=== PATIENT | female | born 1960 | race Caucasian/White ===

== ENCOUNTER 2016-11-11 05:16 | Inpatient (IN) ==
[2016-11-04 11:19] LABS: HEMATOCRIT 44.1 % (37.0-47.0); HEMOGLOBIN 14.2 g/dL (12.0-16.0); MCH 29.7 PG (27-31); MCHC 32.2 g/dL (33-37); MCV 92.3 FL (81-99); RBC 4.78 XMIL (4.2-5.4)
[2016-11-04 11:58] LABS: AGAP 13; BUN 12 mg/dL (8-22); CALCIUM 9.4 mg/dL (8.8-10.2); CHLORIDE 102 mmol/L (98-107); COSMO 282; POTASSIUM 4.2 mmol/L (3.5-5.1); SODIUM 141 mmol/L (136-145); TCO2 26 mmol/L (25-35)
--- NOTE | 2016-11-04 12:14 | EKG Report ---
Test Performed on : 11/04/2016 10:41:40 AM Test Reason : PAT Blood Pressure : / mmHG Vent. Rate : 069 BPM Atrial Rate : 069 BPM P-R Int : 150 ms QRS Dur : 074 ms QT Int : 376 ms P-R-T Axes : 043 007 009 degrees QTc Int : 402 ms Normal sinus rhythm. Normal ECG No previous ECGs available Confirmed by Carlos Eduardo Garcia MD ([id number]) on 11/06/2016 5:31:30 PM
[2016-11-11] MEDS ORDERED: LR 1,000 ML ONE ×3 (05:32→16:37)
[2016-11-11] MEDS ORDERED: KEFZOL 1 GM/D5W 1 GM/50 ML IVPB ONE (05:32)
[2016-11-11] MEDS ORDERED: MARCAINE 0.25% PF/EPI 1:200,000 ONE (06:29)
[2016-11-11] MEDS ORDERED: VERSED ONE ×2 (06:38→06:46)
[2016-11-11] MEDS ORDERED: SODIUM CHLORIDE 0.9% 10 ML ONE (08:43)
[2016-11-11] MEDS ORDERED: MARCAINE 0.25% PF ONE (08:43)
[2016-11-11] MEDS ORDERED: EXPAREL 1.3% ONE ×2 (08:44→08:45)
[2016-11-11 08:55] LABS: URINE MICRO REVIEW NEEDED? NO; URINE SOURCE CATH
[2016-11-11 09:00] LABS: BILIRUBIN URINE NEGATIVE (NEGATIVE); BLOOD URINE NEGATIVE (NEGATIVE); COLOR YELLOW; GLUCOSE URINE NEGATIVE (NEGATIVE); LEUKOCYTES URINE NEGATIVE (NEGATIVE); NITRITE URINE NEGATIVE (NEGATIVE); PROTEIN URINE NEGATIVE (NEGATIVE); SP GRAVITY URINE 1.017; TURBIDITY URINE CLEAR (CLEAR); UR EPITHELIAL CELLS <10 /HPF (<10); URINE BACTERIA NEGATIVE /HPF; URINE RBC <10 /HPF (<10); URINE WBC <10 /HPF (<10); UROBILINOGEN URINE NORMAL (NORMAL)
[2016-11-11] MEDS ORDERED: NS 1,000 ML ONE (10:50)
[2016-11-11] MEDS: DILAUDID ONE ×6 (11:00→12:04)
--- NOTE | 2016-11-11 11:37 | Diag Imaging Result Document ---
PROCEDURE NAME: CHEST-PORTABLE - 11/11/2016 AP PORTABLE CHEST, 11/11/2016 AT 1058 HOURS: FINDINGS: There are 2 chest tubes in the left hemithorax. There is atelectasis in the right upper lobe just above the minor fissure. There are no previous radiographs. IMPRESSION: Recent left thoracotomy with 2 chest tubes. Atelectasis right upper lobe.
--- NOTE | 2016-11-11 12:23 | OPERATIVE NOTE ---
PROCEDURE DATE: 11/11/2016 PROCEDURE: Diagnostic left thoracoscopy; left thoracotomy with left upper lobectomy. SURGEON: Villa Juarez MD UTILITY PORTER: Kayode Knight MD, who assisted in exposure, dissection, and thoracotomy closure. PREOPERATIVE DIAGNOSIS: Left upper lobe mass. POSTOPERATIVE DIAGNOSIS: Nei-pitpz-[id number] malignancy. DESCRIPTION OF PROCEDURE: Satisfactory general endotracheal anesthesia was achieved, the patient was placed in the decubitus position with the left side up. The left posterior lateral chest was prepped and draped in a sterile fashion. We marked the skin below the tip of the scapula. We anesthetized the skin in 3 different places and incised the skin, and carried our incision into the pleural space. The left bronchial tube was clamped allowing the left lung to collapse. We introduced 3 Thoracoport's. As the lung collapsed, we were able to visualize the left upper lobe. We visualized the major fissure. We visualized the superior dorsal segment of the left lower lobe. We palpated the left upper lobe using the pusher and the grasper, could not locate the mass for certain, so we aborted further attempts at removing the mass thoracoscopically. We then removed our Thoracoport's and then incised the skin in the area marked making a posterior lateral thoracotomy, carried our incision through the subcutaneous fat through the latissimus muscle, the serratus anterior muscle. We identified the 5th intercostal space and entered the chest through the 5th intercostal space. We stayed above the sixth rib to try to stay away from the neurovascular bundle under the 5th rib. We then took the neurovascular bundle away from the inferior aspect of the 5th rib so that we would not crush it when placing our rib correctional officer sergeant. Upon placing the rib correctional officer sergeant we could palpate the mass that was in the superior portion of the left upper lobe. We were able to separate the major fissure enough to allow the stapling device that is a GARRET-80 green cartridge to staple across the superior aspect of the left upper lobe thereby removing the mass and it was sent for frozen section. We then proceeded to dissect out our vessels to the left upper lobe. We identified the 2 branches off the pulmonary artery coming to the left upper lobe, there was a node in the AP window that was somewhat calcified. We left it with our specimen. We identified the recurrent nerve and left it alone. We also incised the pleura anterior and posterior and exposed the superior pulmonary vein. We dissected around it and isolated it. We then went to the fissure and incised the pleura there, exposing the artery as it came through the major fissure. There was a node in the anterior hilum that we removed. There was a note from the posterior hilum that we removed and there was a note from the major fissure that we removed. All these were sent for permanent section. 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 We then went back to the branches off the left pulmonary artery main trunk. We doubly ligated them proximally x2, and singly ligated them distally x1, and divided that. Those were the apical and posterior segmental arteries. We then identified the anterior pulmonary vein and ligated it distally and then used the TA-30 vascular staple to staple it proximally and divided the anterior pulmonary vein. We completed the major fissure on the superior portion using the GARRET-80 green cartridge. This then allowed us to visualize the lingular vessels, which we doubly ligated proximally x2 and distally x1, and divided that. This completed our arterial dissection. We completed the fissure inferiorly using again a GARRET-80 green. This then left us with the bronchus. We were able to get a TA-30 degrees green with 4.8 john, we clamped that bronchus and inflated the lower lobe easily. After completing that, we then stapled off the bronchus and divided it there by handing off the left upper lobe. We tested the bronchus under water up to 40 atmospheres and it was air tight. We then used some ProGEL on the staple lines of the major fissure to help completely stop the air leak. We then obtained two 32 chest tube, placed 1 anteriorly, 1 more posteriorly cutting an extra hole in the posterior tube to help decompress and empty the inferior pleural space. We used Exparel 20 mL diluted to 40 mL with plain Marcaine, used it along the fifth and sixth intercostal of the 5th and 6 ribs and neurovascular bundle and then also into the subcutaneous tissue below the skin. We drilled 3 holes in the 5th rib and the 6th rib and passed a #2 Polysorb stitch through these holes, reapproximated the ribs with a rib reapproximated and then secured the chest with these 3 Polysorb stitches. We closed the serratus anterior with a 1 Polysorb. We closed the latissimus with 1 Polysorb. We closed the rhomboids with 1 Polysorb. We closed the subcutaneous tissue with 0 Polysorb and the skin was closed with john, 0 silks were used to secure the chest tube at the skin level and they were attached to the Pleur-evac. Sterile dressing was applied. She tolerated it well, was sent to the recovery room in satisfactory condition. cc: MD Castillo Lockett MD Nixon Gillespie, MD
[2016-11-11] MEDS ORDERED: ZOFRAN IV PRN (12:46)
[2016-11-11] MEDS ORDERED: FENTANYL ONE (13:28)
[2016-11-11] MEDS ORDERED: DIPRIVAN 1% ONE (13:28)
[2016-11-11] MEDS ORDERED: PNEUMOVAX 23 IM ONE (13:30)
[2016-11-11] MEDS: OFIRMEV 1000 MG/ISOTONIC SOLN 1,000 MG/100 ML BOTTLE IV SCH ×2 (13:30→20:25)
[2016-11-11] MEDS: DUONEB (A & A) INH SCH ×3 (15:00→23:25)
[2016-11-11] MEDS: KEFZOL 1 GM/D5W 1 GM/50 ML IVPB IV SCH ×2 (15:11→22:38)
[2016-11-11] MEDS: DILAUDID IV PRN ×4 (16:08→22:38)
[2016-11-11] MEDS ORDERED: ZOFRAN ONE (16:37)
[2016-11-11] MEDS ORDERED: ZEMURON ONE (16:37)
[2016-11-11] MEDS ORDERED: ROBINUL ONE (16:37)
[2016-11-11] MEDS ORDERED: CLAVE SECONDARY SET 11953 ONE (16:37)
[2016-11-11] MEDS ORDERED: DECADRON ONE (16:37)
[2016-11-11] MEDS ORDERED: QUELICIN (DOSE) ONE (16:37)
[2016-11-11] MEDS ORDERED: OFIRMEV 1000 MG/ISOTONIC SOLN 1,000 MG/100 ML BOTTLE ONE (16:37)
[2016-11-11] MEDS ORDERED: NEOSTIGMINE ONE (16:37)
[2016-11-11] MEDS: NS 1,000 ML IV SCH ×2 (17:01→20:26)
[2016-11-11] MEDS: ULTRAM PO PRN (18:34)
[2016-11-11] MEDS: PERIDEX MT SCH (20:26)
[2016-11-12] MEDS: DILAUDID IV PRN ×7 (00:34→23:04)
[2016-11-12] MEDS: ULTRAM PO PRN ×4 (01:31→21:00)
[2016-11-12] MEDS: OFIRMEV 1000 MG/ISOTONIC SOLN 1,000 MG/100 ML BOTTLE IV SCH ×4 (03:23→21:39)
[2016-11-12] MEDS: DUONEB (A & A) INH SCH ×5 (05:25→20:01)
[2016-11-12] MEDS: KEFZOL 1 GM/D5W 1 GM/50 ML IVPB IV SCH ×2 (06:09→14:48)
[2016-11-12] MEDS: NS 1,000 ML IV SCH ×2 (06:09→14:29)
[2016-11-12] MEDS: SYNTHROID PO SCH (06:09)
--- NOTE | 2016-11-12 08:14 | Diag Imaging Result Document ---
PROCEDURE NAME: CHEST-PORTABLE - 11/12/2016 PORTABLE CHEST: COMPARISON: 11/11/2016. FINDINGS: There are two left sided chest tubes and there are left sided skin john. No pneumothorax identified. The heart is not enlarged. Mediastinum is not widened. No pleural effusions identified. There are no infiltrates. Interval clearing of the midright lung. The lungs are better expanded on the current exam. IMPRESSION: Overall interval improvement.
[2016-11-12] MEDS: PERIDEX MT SCH ×2 (08:42→21:39)
[2016-11-12] MEDS: PRINIVIL PO SCH (08:42)
[2016-11-12] MEDS ORDERED: METHOTREXATE PO SCH (09:00)
[2016-11-12] MEDS: VITAMIN C PO SCH (12:58)
[2016-11-12] MEDS: ZINC SULFATE PO SCH (12:59)
[2016-11-12] MEDS ORDERED: NS 1,000 ML IV SCH (16:41)
[2016-11-13] MEDS: OFIRMEV 1000 MG/ISOTONIC SOLN 1,000 MG/100 ML BOTTLE IV SCH ×4 (02:58→20:05)
[2016-11-13] MEDS: DUONEB (A & A) INH SCH ×4 (03:23→19:29)
[2016-11-13] MEDS: DILAUDID IV PRN ×6 (05:37→23:20)
--- NOTE | 2016-11-13 06:21 | Diag Imaging Result Document ---
PROCEDURE NAME: CHEST-PORTABLE - 11/13/2016 PORTABLE CHEST: COMPARISON: Compared to 11/12/2016. FINDINGS: There are two left-sided chest tubes and there are left lateral skin john. Poor inspiratory effort. No pneumothorax identified. No infiltrates. No pleural effusions are seen. IMPRESSION: Stable chest.
[2016-11-13] MEDS: SYNTHROID PO SCH (06:49)
[2016-11-13] MEDS: FOLIC ACID PO SCH (09:13)
[2016-11-13] MEDS: ZINC SULFATE PO SCH (09:13)
[2016-11-13] MEDS: PERIDEX MT SCH ×2 (09:14→20:05)
[2016-11-13] MEDS: PRINIVIL PO SCH (09:14)
[2016-11-13] MEDS: VITAMIN C PO SCH (09:14)
[2016-11-13] MEDS: ULTRAM PO PRN (12:26)
[2016-11-14] MEDS: OFIRMEV 1000 MG/ISOTONIC SOLN 1,000 MG/100 ML BOTTLE IV SCH ×4 (02:31→21:23)
[2016-11-14] MEDS: ULTRAM PO PRN ×3 (05:39→18:29)
[2016-11-14] MEDS: SYNTHROID PO SCH ×2 (05:40→10:03)
[2016-11-14] MEDS: DUONEB (A & A) INH SCH ×4 (06:37→21:13)
[2016-11-14] MEDS: FOLIC ACID PO SCH (09:46)
[2016-11-14] MEDS: PRINIVIL PO SCH ×2 (09:46→12:33)
[2016-11-14] MEDS: ZINC SULFATE PO SCH (09:46)
[2016-11-14] MEDS: VITAMIN C PO SCH (09:47)
[2016-11-14] MEDS: PERIDEX MT SCH ×3 (09:47→22:31)
[2016-11-14] MEDS: DILAUDID IV PRN (17:21)
[2016-11-15] MEDS: ULTRAM PO PRN ×2 (01:26→07:59)
[2016-11-15] MEDS: DUONEB (A & A) INH SCH (02:50)
[2016-11-15] MEDS: OFIRMEV 1000 MG/ISOTONIC SOLN 1,000 MG/100 ML BOTTLE IV SCH (03:29)
[2016-11-15] MEDS: SYNTHROID PO SCH (06:08)
[2016-11-15] MEDS ORDERED: NORCO-10 PO PRN (06:39)
[2016-11-15 07:20] VITALS: BP 115/66
--- NOTE | 2016-11-15 07:38 | Diag Imaging Result Document ---
PROCEDURE NAME: CHEST-PORTABLE - 11/15/2016 AP PORTABLE CHEST, ERECT AT 0545 HOURS: FINDINGS: The chest tubes on the left have been removed since 11/13/2016. There is still some residual soft tissue emphysema in the left chest wall. The left lung is less expanded than it was previously. The right lung is stable in appearance. IMPRESSION: Mild left-sided atelectasis. No evidence of residual pneumothorax.
[2016-11-15] MEDS: ZINC SULFATE PO SCH (07:57)
[2016-11-15] MEDS: PERIDEX MT SCH (07:57)
[2016-11-15] MEDS: FOLIC ACID PO SCH (07:57)
[2016-11-15] MEDS: PRINIVIL PO SCH (07:57)
[2016-11-15] MEDS: VITAMIN C PO SCH (07:57)
--- NOTE | 2016-11-29 21:35 | DISCHARGE SUMMARY ---
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 PRIMARY PROCEDURE: Left thoracoscopy with left thoracotomy and left upper lobectomy. HISTORY OF PRESENT ILLNESS: This is a 56-year-old white female sent by Dr. Mcqueen, Dr. Sow with a left upper lobe mass. She is a nonsmoker. Her LFTs were good. She was therefore admitted for biopsy and possible lobectomy. HOSPITAL COURSE: Following her admission on the , she underwent the above-noted procedure. Postoperatively she did generally well. The biopsy was positive for [id number] carcinoma. We were able to decrease IV around the first postoperative day and put her on liquids. We took the Cabrera out on the 2nd postoperative day. We removed her anterior chest tube on the 2nd postoperative day. We removed her posterior chest tube on the 3rd postoperative day. On 11/15, postop day 4, she was afebrile taking satisfactory PO. Her chest x-ray was good, her chest tubes were out and it was felt she could be discharged home. A prescription for Eden 10 was given. She will return to the office in a week for staple removal. cc: MD Castillo Lockett MD Nixon Gillespie, MD
== END 2016-11-15 08:55 | disposition home or self-care (01) ==
LOC: OPS 05:16 → EDSTATUS 07:00 → 4N 10:48
PROVIDERS: ADMIT Surgery; ATTEND Surgery
PROC: GE.THRS (2016-11-11 06:57)